=== PATIENT | male | born 1945 | race Caucasian/White ===

== ENCOUNTER 2022-01-13 00:10 | Observation (INO) | payer MEDICARE, OTHER ==
[2022-01-13 00:45] LABS: Hemoglobin 13.1 g/dL (13.5-17.5); Mean Corpuscular HGB CONC 32.8 g/dL (32.0-36.0); Mean Corpuscular Hemoglobin 29.5 pg (27.0-33.0); Mean Corpuscular Volume 90.1 fl (81.2-95.1); Mean Platelet Volume 10.3 fl (7.4-10.4); Platelet Count 156 10x3/uL (150-450); RBC Distribution Width 14.2 % (11.5-14.5); Red Blood Cell (RBC) Count 4.44 10x6/uL (4.32-5.72); White Blood Cell (WBC) Count 4.9 10x3/uL (3.5-10.5)
[2022-01-13 00:47] LABS: Bilirubin 1+ (Negative); Blood, Urine 10 (Negative); Clarity Clear (Clear); Glucose, Urine (Dipstick) Normal (Negative); Ketone, Urine 5 mg/dL (Negative); Leukocyte Negative (Negative); Nitrite Negative (Negative); Protein, Urine (Dipstick) Negative (Neg-Trace); Specific Gravity, Urine 1.015 (1.002-1.036)
[2022-01-13 01:01] LABS: ALT (SGPT) Less than 6 U/L (8-55); AST (SGOT) 15 U/L (5-34); Albumin 3.3 g/dL (3.4-4.8); Alkaline Phosphatase 102 U/L (40-110); Anion Gap 14 mmol/L (10-20); BUN (Urea Nitrogen) 22 mg/dL (8.4-25.7); Bilirubin, Total 2.3 mg/dL (0.2-1.2); Calc. Creatinine Clearance 0 mL/min (70-130); Carbon Dioxide 25 mmol/L (23-31); Chloride 106 mmol/L (98-107); Globulin 2.1 g/dL (2.4-3.5); Glucose 93 mg/dL (83-110); Protein, Total 5.4 g/dL (5.8-8.1); Sodium 141 mmol/L (136-145)
[2022-01-13 01:01] LABS: Bacteria/HPF None Seen HPF (None Seen); WBC/HPF 0-3 HPF (0-3)
[2022-01-13 01:02] LABS: Mucous/LPF 1+ LPF (<2+)
[2022-01-13 01:05] LABS: Manual Diff?? YES
[2022-01-13 01:06] LABS: MDiff Complete? YES
[2022-01-13 01:10] LABS: Band 4 % (5-11); Eosinophils 3 % (0-10); Lymphocytes 11 % (21-51); Monocytes 14 % (0-10); Neutrophil 65 % (42-75); Reactive Lymphocytes 2 % (0-10)
[2022-01-13 01:11] LABS: Platelet Morphology Comment Appears Adequate
[2022-01-13 01:24] LABS: SARS-CoV-2 NAA Rapid Test Not Detected (NotDetected)
[2022-01-13] MEDS ORDERED: Vancomycin 1.5 GRAM/300 ML BAG 1.5 GM in Premix Bag 1 BAG IVPB SCH (01:45)
[2022-01-13] MEDS ORDERED: Cefepime 2 GM VIAL ONE ×2 (01:49→14:03)
[2022-01-13 04:37] LABS: Base Excess (BEa) -1.3 mEq/L (-2.0 to +3.0); CO2 Tension 28.4 mmHg (35.0-45.0); Calcium, Ionized (arterial) 1.16 mmol/L (1.12-1.30); Carboxyhemoglobin (COHb) 0.7 gm% (0.0-3.0); Hemoglobin (Hb) 12.7 g/dL (14.0-18.0); O2 Tension (PaO2), arterial 129.8 mmHg (> 70.0); Potassium - ABG Lab 3.8 mmol/L (3.70-5.30); Puncture Site RRA; pH, Arterial 7.49 (7.35-7.45)
[2022-01-13] MEDS ORDERED: Ondansetron PF 4 MG/2 ML Vial IVP PRN (06:34)
[2022-01-13] MEDS ORDERED: Ondansetron ODT 4 MG TAB PO PRN (06:34)
[2022-01-13] MEDS ORDERED: Sodium Chloride 0.9% 1,000 ML IV SCH (06:45)
[2022-01-13 07:14] LABS: Hemoglobin 12.2 g/dL (13.5-17.5); Mean Corpuscular HGB CONC 31.7 g/dL (32.0-36.0); Mean Corpuscular Hemoglobin 29.2 pg (27.0-33.0); Mean Corpuscular Volume 92.1 fl (81.2-95.1); Mean Platelet Volume 10.5 fl (7.4-10.4); Platelet Count 132 10x3/uL (150-450); RBC Distribution Width 14.1 % (11.5-14.5); Red Blood Cell (RBC) Count 4.18 10x6/uL (4.32-5.72); White Blood Cell (WBC) Count 3.8 10x3/uL (3.5-10.5)
[2022-01-13 07:15] LABS: MDiff Complete? YES; Manual Diff?? YES
[2022-01-13 07:19] LABS: Band 2 % (5-11); Eosinophils 4 % (0-10); Lymphocytes 30 % (21-51); Monocytes 12 % (0-10); Neutrophil 42 % (42-75); Reactive Lymphocytes 8 % (0-10)
[2022-01-13 07:21] LABS: Platelet Morphology Comment Appears Adequate
[2022-01-13] MEDS ORDERED: Iopamidol 370 76% 100 ML VIAL ONE (08:00)
[2022-01-13] MEDS: Acetaminophen 325 MG TAB PO PRN (08:56)
[2022-01-13] MEDS: Finasteride 5 MG TAB PO SCH (08:56)
[2022-01-13] MEDS: Furosemide 40 MG TAB PO SCH ×2 (08:56→15:51)
[2022-01-13] MEDS: Aspirin 81 mg Enteric Coated Tablet PO SCH (08:57)
[2022-01-13] MEDS: Carbidopa/Levodopa 25-100 mg Tablet PO SCH ×3 (08:57→20:55)
[2022-01-13] MEDS ORDERED: Enoxaparin Sodium 40 MG/0.4 ML SYRINGE SC SCH (09:00)
[2022-01-13] MEDS ORDERED: Tamsulosin HCl 0.4 MG CAP PO SCH ×2 (09:00→21:00)
[2022-01-13] MEDS ORDERED: VANCOMYCIN 1.25 GM/250 ML BAG IVPB SCH (09:00)
[2022-01-13 11:02] VITALS: BMI 36.6
[2022-01-13 12:09] LABS: ALT (SGPT) 7 U/L (8-55); AST (SGOT) 16 U/L (5-34); Albumin 3.2 g/dL (3.4-4.8); Alkaline Phosphatase 94 U/L (40-110); Anion Gap 16 mmol/L (10-20); BUN (Urea Nitrogen) 21 mg/dL (8.4-25.7); Bilirubin, Total 2.2 mg/dL (0.2-1.2); Calc. Creatinine Clearance 115 mL/min (70-130); Calcium 9.2 mg/dL (7.8-10.44); Carbon Dioxide 23 mmol/L (23-31); Chloride 106 mmol/L (98-107); Globulin 2.6 g/dL (2.4-3.5); Glucose 82 mg/dL (83-110); Potassium 3.9 mmol/L (3.5-5.1); Protein, Total 5.8 g/dL (5.8-8.1); Sodium 141 mmol/L (136-145)
[2022-01-13] MEDS ORDERED: Sodium Chloride 0.9% 100 ML ONE (14:03)
[2022-01-13] MEDS: Cefepime 2 GM in Sodium Chloride 0.9% 100 ML IVPB SCH (14:20)
[2022-01-13] MEDS: VANCOMYCIN 1.25 GM/250 ML BAG 1.25 GM in Premix Bag 1 BAG IVPB SCH (15:51)
[2022-01-14] MEDS: Cefepime 2 GM in Sodium Chloride 0.9% 100 ML IVPB SCH ×2 (02:54→15:22)
[2022-01-14] MEDS: VANCOMYCIN 1.25 GM/250 ML BAG 1.25 GM in Premix Bag 1 BAG IVPB SCH (02:54)
[2022-01-14] MEDS: Acetaminophen 325 MG TAB PO PRN (02:59)
[2022-01-14 05:46] LABS: Hemoglobin 12.5 g/dL (13.5-17.5); Mean Corpuscular HGB CONC 33.4 g/dL (32.0-36.0); Mean Corpuscular Hemoglobin 29.1 pg (27.0-33.0); Mean Platelet Volume 10.5 fl (7.4-10.4); Platelet Count 140 10x3/uL (150-450); RBC Distribution Width 14.2 % (11.5-14.5); White Blood Cell (WBC) Count 4.6 10x3/uL (3.5-10.5)
[2022-01-14 06:07] LABS: Phosphorus 4.3 mg/dL (2.3-4.7)
[2022-01-14 06:10] LABS: Anion Gap 16 mmol/L (10-20); BUN (Urea Nitrogen) 20 mg/dL (8.4-25.7); Calc. Creatinine Clearance 128 mL/min (70-130); Calcium 8.8 mg/dL (7.8-10.44); Carbon Dioxide 23 mmol/L (23-31); Chloride 105 mmol/L (98-107); Glucose 107 mg/dL (83-110); Magnesium 1.7 mg/dL (1.6-2.6); Potassium 3.7 mmol/L (3.5-5.1); Sodium 140 mmol/L (136-145)
[2022-01-14 06:19] LABS: Band 9 % (5-11); Eosinophils 3 % (0-10); Lymphocytes 17 % (21-51); Monocytes 20 % (0-10); Neutrophil 41 % (42-75); Reactive Lymphocytes 9 % (0-10)
[2022-01-14 06:20] LABS: Platelet Morphology Comment Appears Adequate
[2022-01-14 08:08] LABS: Strep pneumo Urine Ag NEGATIVE (NEGATIVE)
[2022-01-14] MEDS: Furosemide 40 MG TAB PO SCH ×2 (09:11→15:22)
[2022-01-14] MEDS: Finasteride 5 MG TAB PO SCH (09:11)
[2022-01-14] MEDS: Carbidopa/Levodopa 25-100 mg Tablet PO SCH ×2 (09:11→15:23)
[2022-01-14] MEDS: Aspirin 81 mg Enteric Coated Tablet PO SCH (09:11)
[2022-01-14 12:34] VITALS: BP 134/61; TEMP 96.4
[2022-01-14 12:56] LABS: Vancomycin, Trough 20.4 ug/mL
[2022-01-14] MEDS ORDERED: Vancomycin HCl 1 GM in Sodium Chloride 0.9% 250 ML 250 ML IVPB SCH (14:00)
== END 2022-01-14 15:23 ==
LOC: CSHERS 00:10 → SUATTDRO 00:10 → CSHTELE 08:29 → INTOOBSV 08:29
PROVIDERS: ADMIT Family Medicine; ATTEND Family Medicine
DX: G93.41 Metabolic encephalopathy (principal); R53.81 Other malaise; G20 Parkinson's disease; F02.80 Dementia in other diseases classified elsewhere, unspecified severity, without behavioral disturbance, psychotic disturbance, mood disturbance, and anxiety; K21.9 Gastro-esophageal reflux disease without esophagitis; M19.90 Unspecified osteoarthritis, unspecified site; N40.0 Benign prostatic hyperplasia without lower urinary tract symptoms; I49.5 Sick sinus syndrome; G47.33 Obstructive sleep apnea (adult) (pediatric); J44.9 Chronic obstructive pulmonary disease, unspecified; I10 Essential (primary) hypertension; E66.9 Obesity, unspecified; Z68.36 Body mass index [BMI] 36.0-36.9, adult; Z79.899 Other long term (current) drug therapy; Z88.5 Allergy status to narcotic agent; Z95.0 Presence of cardiac pacemaker; Z96.642 Presence of left artificial hip joint; Z20.822 Contact with and (suspected) exposure to COVID-19
CPT/HCPCS: 0241U; 36600; 70450; 71045; 71275; 73502; 80048; 80053 ×2; 80202; 82805; 83605; 83735; 83880; 84100; 84145; 84484; 85025 ×3; 87040; 87086; 87449; 93005; 93971; 96361; 96365; 96366; 96367; 96372; 96376 ×2; 97110; 97139; 97530; 99285; G0378 ×3; 36415; 81003; 81015; J0692; J1650; J3370; J3490; Q9967